=== PATIENT | male | born 1990 | race African-American/Black ===

== ENCOUNTER 2017-10-21 01:59 | Emergency (ER) | payer BC, OTHER | END 2017-10-21 02:30 | disposition home or self-care (01) | LOC: SCSER 01:59 | DX: J45.909 Unspecified asthma, uncomplicated (principal) | CPT/HCPCS: 94640; J7620 ==

== ENCOUNTER 2017-10-22 09:15 | Outpatient (CLI) | payer OTHER | END 2017-10-22 09:16 | disposition home or self-care (01) | LOC: BICRAD 09:15 | PROVIDERS: ATTEND Family Medicine | DX: R05 Cough (principal) | CPT/HCPCS: 71046 ==

== ENCOUNTER 2018-12-17 21:27 | Emergency (ER) | payer OTHER, SELFPAY ==
[~2018-12-17 21:27] MED LIST: Iopamidol 300 61% 100 ML VIAL FS ONE
[2018-12-17] MEDS ORDERED: Ketorolac Tromethamine 30 MG/ML VIAL ONE (21:49)
[2018-12-17] MEDS ORDERED: Ondansetron PF 4 MG/2 ML Vial ONE (22:02)
[2018-12-17 22:12] LABS: Band 5 % (5-11); Eosinophils 2 % (0-10); Hemoglobin 15.7 g/dL (14.0-18.0); Lymphocytes 11 % (21-51); MDiff Complete? YES; Mean Corpuscular HGB CONC 35.5 g/dL (32.0-36.0); Mean Corpuscular Hemoglobin 32.1 pg (27.0-31.0); Mean Corpuscular Volume 90.5 fL (78.0-98.0); Mean Platelet Volume 7.3 fL (7.4-10.4); Monocytes 1 % (0-10); Neutrophil 81 % (42-75); Platelet Count 289 thou/uL (130-400); RBC Distribution Width 11.2 % (11.5-14.5); Red Blood Cell (RBC) Count 4.88 mill/uL (4.70-6.10); White Blood Cell (WBC) Count 10.9 thou/uL (4.8-10.8)
[2018-12-17 22:14] LABS: ALT (SGPT) 40 U/L (8-55); AST (SGOT) 35 U/L (5-34); Albumin 4.8 g/dL (3.5-5.0); Alkaline Phosphatase 88 U/L (40-150); Anion Gap 15 mmol/L (10-20); BUN (Urea Nitrogen) 9 mg/dL (8.9-20.6); Bilirubin, Total 0.3 mg/dL (0.2-1.2); Calc. Creatinine Clearance 0 mL/min (70-130); Calcium 9.6 mg/dL (7.8-10.44); Carbon Dioxide 27 mmol/L (22-29); Chloride 102 mmol/L (98-107); Estimated GFR-MDRD Greater than 90; Globulin 4.3 g/dL (2.4-3.5); Glucose 118 mg/dL (70-105); Lipase 10 U/L (8-78); Potassium 3.6 mmol/L (3.5-5.1); Protein, Total 9.1 g/dL (6.0-8.3); Sodium 140 mmol/L (136-145)
[2018-12-17 23:30] LABS: Bilirubin Negative (Negative); Blood, Urine Trace (Negative); Clarity Slightly Cloudy (Clear); Glucose, Urine (Dipstick) Negative (Negative); Leukocyte Negative (Negative); Nitrite Negative (Negative); Protein, Urine (Dipstick) 30 mg/dL (Neg-Trace); Specific Gravity, Urine 1.025 (1.005-1.030); Urobilinogen 0.2 mg/dL (0.2-1.0)
[2018-12-17 23:37] LABS: Bacteria/HPF None Seen HPF (None Seen); Hyaline Casts/LPF NONE SEEN LPF (0-3 Hyaline); Squamous Epithelial 0-3 HPF (0-3); WBC/HPF 0-3 HPF (0-3)
--- NOTE | 2018-12-17 23:41 | CT ---
CT abdomen and pelvis with IV contrast. Oral contrast was administered. INDICATIONS: Abdominal pain COMPARISON: None FINDINGS: Lung bases are clear Liver, spleen, and pancreas appear unremarkable. Stomach and duodenum appear unremarkable. Adrenal glands appear normal. Kidneys appear unremarkable. Collecting structures and urinary bladder appear unremarkable. Small bowel loops are normal caliber and exhibit normal fold pattern. Appendix is identified and appears unremarkable. Colon is unremarkable. Aorta is normal caliber. No evidence of retroperitoneal or mesenteric adenopathy. Pelvic structures appear unremarkable. Subcutaneous tissues, abdominal wall, and muscular structures appear unremarkable. Osseous structures appear unremarkable. IMPRESSION: No acute findings
== END 2018-12-17 23:51 | disposition home or self-care (01) ==
LOC: SCSER 21:27
DX: R11.2 Nausea with vomiting, unspecified (principal); R19.7 Diarrhea, unspecified; B20 Human immunodeficiency virus [HIV] disease
CPT/HCPCS: 74177; 80053; 81003; 81015; 83605; 83690; 85025; 96361; 96374; 96375; J1885; J2405; Q9967